=== PATIENT | male | born 1965 | race Caucasian/White ===

== ENCOUNTER → 2023-12-08 08:02 | Outpatient (REF) | payer BC, SELFPAY | LOC: RAD 08:02 | PROVIDERS: ATTENDING PHYSICIAN Nurse Practitioner | DX: M84.350S Stress fracture, pelvis, sequela (principal) | CPT/HCPCS: 77080 ==

== ENCOUNTER → 2024-03-18 06:34 | Day surgery (SDC) | payer BC, SELFPAY | LOC: GI 06:34 | PROVIDERS: ATTENDING PHYSICIAN Internal Medicine | DX: Z12.11 Encounter for screening for malignant neoplasm of colon (principal); K64.8 Other hemorrhoids; K57.30 Diverticulosis of large intestine without perforation or abscess without bleeding; K63.5 Polyp of colon; K62.1 Rectal polyp; Z86.010 Personal history of colon polyps | CPT/HCPCS: 45380; 88305 ==